=== PATIENT | female | born 1980 | race Caucasian/White ===

== ENCOUNTER 2023-09-10 18:32 | Emergency (ER) | payer BC, SELFPAY ==
[2023-09-10 18:41] VITALS: BP 153/99; PULSE 89; RESP 12; TEMP 35.9; O2SAT 99; BMI 25.7
--- NOTE | 2023-09-10 19:05 | ED_ITS ---
HPI - General Adult General Date Seen: 09/10/23 Chief complaint: Headache/Migraine Stated complaint: headache, back and neck pain Time Seen by Provider: 09/10/23 19:05 History of Present Illness HPI narrative: 42-year-old female presenting to the ER today for symptoms of headache, neck pain, and back pain. Symptoms of actually been going on for 2 months but have been getting worse lately and came to the point today where she cannot tolerate it at home. She notes that in started with intermittent left retro-orbital headaches but also now she has been having increasing pain in tension in her left shoulder, just medial to her left scapula, radiating up the left side of her neck and mostly in the left side of her head. It has been present for a couple of months and been getting steadily worse. It has gotten to the point today where it is just not tolerable anymore. She has been trying to medicated with [id number] Tylenol and ibuprofen, lidocaine patches, and she has been going to her chiropractor but it just isn't getting better. She 1st thought it might just be attention problem because she started a new job and has been stressed. However with progressing symptoms now over couple of months she is concerned. 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 This is a very aware aggressive tumor. It was resected by a surgeon at the [facility]. She had surveillance for about 3 years after the resection and with no sign of recurrence. She says she has not been good about going back for her follow-up surveillance scans. With the pain in her left shoulder she is worried that there might be a recurrence of that tumor. No fevers but sometimes she has night sweats. No known sick exposures. No cough. She has photophobia but otherwise vision is normal. No focal numbness or weakness in her arms or legs. No ataxia or gait instability. No confusion. No trouble with speaking. No seizures. No known injury or fall. Related Data Home Medications Medication Instructions Recorded Confirmed cyclobenzaprine 5 mg tablet 5 - 10 mg PO 3XD PRN 09/10/23 09/10/23 fluoxetine 40 mg capsule 40 mg PO DAILY 09/10/23 09/10/23 norethindrone acetate 1 mg-ethinyl 1 tab PO DAILY 09/10/23 09/10/23 estradiol 20 mcg tablet (Junel) Allergies Allergy/AdvReac Type Severity Reaction Status Date / Time rifampin Allergy Unknown Verified 09/10/23 20:01 [facility] Social History Smoking Status: Never smoker How often do you have a drink containing alcohol: monthly or less AUDIT-C Alcohol total score: 1 Non-prescribed substance use: denies use Exam Narrative: Exam Narrative: Constitutional: Appears well-developed and well-nourished. Alert. Uncomfortable and has the lights out because she has photophobia. She is worried and mildly tearful but conversant and polite HENT: Head: Atraumatic. No depressed skull fracture, Raccoon Eyes, Marr's sign, or hemotympanum. Face normal. TMs normal Nose: Nose normal. Mouth/Throat: Oral mucosa is clear and moist. no trismus. Pharynx normal. Tonsils symmetric. No tonsillar enlargement, erythema, or exudate. Eyes: Conjunctivae normal. EOM normal. Pupils equal, round, and reactive to light. No scleral icterus. Neck: Normal range of motion. Neck supple. No tracheal deviation present. No posterior midline tenderness or step-off. She is mildly tender over the left cervical paraspinous muscles but that seems to stem from more significant tenderness over the left trapezius muscle. Cardiovascular: Normal rate, regular rhythm. No gallop. No friction rub. No murmur heard. Symmetric radial artery pulses Pulmonary/Chest: Effort normal. No stridor. No respiratory distress. No wheezes. No rales. No rhonchi . No tenderness. Abdominal: Soft. Bowel sounds normal. No distension. No mass. No tenderness. No rebound. No guarding. Musculoskeletal: Inspection of her back reveals that she has a vertical incision over her left medial scapula roughly 10 cm long. The incision looks to be well healed in a few years old. She is having a lot of tenderness and a firm area in the musculature a few cm medial to that incision. She is very tender over that left trapezius muscle with tenderness extending up the left cervical paraspinous muscles and also left headache. RUE: Normal range of motion. No tenderness. No deformity LUE: Normal range of motion. No tenderness. No deformity RLE: Normal range of motion. No edema. No tenderness. No deformity LLE: Normal range of motion. No edema. No tenderness. No deformity Lymph: No cervical adenopathy. Neurological: Mental status normal. Attention normal. Alert and oriented x3. GCS 15. Memory normal. Speech fluent. Cognition normal. Cranial Nerves intact II-XII except I did not formally test gag or visual acuity. EOMI. Palate elevates symmetrically and tongue protrudes in the midline. Strength: 5/5 trapezius on the right and left 5/5 deltoid on the right and left 5/5 biceps on the right and left 5/5 triceps on the right and left 5/5 bartenders on the right and left 5/5 thumb opposition on the right and le ft 5/5 finger abduction on the right and le ft 5/5 hip flexors (L3) on the right and le ft 5/5 quadriceps (L4) on the right and lef t 5/5 tibialis anterior on the right and l eft 5/5 EHL (L5) on the right and left 5/5 gastrocnemius (S1) on the right and left 5/5 hamstring on the right and left Sensation intact to light touch in both upper extremities (C4-T1) Sensation intact to light touch in Both lower extremities (L4-S1). Finger to nose and coordination normal. Skin: Skin is warm and dry. No rash noted. No pallor. Normal capillary refill. Psychiatric: Normal mood. Tearful due to pain and worry. Polite Const: Vital Signs, click to edit/add: Vital Signs - 24 hr 09/10/23 18:41 Temperature 96.7 F L Pulse Rate [Pulse Oximeter] 89 Respiratory Rate 12 Blood Pressure [Ri ght Upper Arm] 153/99 H Pulse Oximetry 99 Oxygen Delivery Me thod Room Air Course Vital Signs Vital signs: Initial Vital Signs Temperature 96.7 F L 09/10/23 18:41 Temperature Source Temporal Artery Scan 09/10/23 18:41 Pulse Rate 89 09/10/23 18:41 Pulse Rhythm Regular 09/10/23 18:41 Respiratory Rate 12 09/10/23 18:41 Blood Pressure 153/99 H 09/10/23 18:41 Blood Pressure Mean 117 H 09/10/23 18:41 Blood Pressure Position Sitting 09/10/23 18:41 Pulse Oximetry 99 09/10/23 18:41 Oxygen Delivery Method Room Air 09/10/23 18:41 Vital Signs Temperature 96.7 F L 09/10/23 18:41 Pulse Rate 89 09/10/23 18:41 Respiratory Rate 12 09/10/23 18:41 Blood Pressure 153/99 H 09/10/23 18:41 Pulse Oximetry 99 09/10/23 18:41 Oxygen Delivery Method Room Air 09/10/23 18:41 Temperature 96.7 F L 09/10/23 18:41 Pulse Rate 89 09/10/23 18:41 Respiratory Rate 12 09/10/23 18:41 Blood Pressure 153/99 H 09/10/23 18:41 Pulse Oximetry 99 09/10/23 18:41 Oxygen Delivery Method Room Air 09/10/23 18:41 Medications Administered Medications: Discontinued Medications Generic Name Dose Route Start Last Admin Trade Name Deoq PRN Reason Stop Dose Admin Diphenhydramine HCl 12.5 mg 09/10/23 19:27 09/10/23 19:55 Diphenhydramine 50 Mg/Ml Inj IVP 09/10/23 19:28 12.5 mg ONCE ONE Administration Sodium Chloride 1,000 mls @ 1,000 mls/hr 09/10/23 19:30 09/10/23 21:16 0.9 % Sodium Chloride 1000 Ml IV 09/10/23 20:29 Infused .Q1H MARCELLUS Infusion Ketorolac Tromethamine 15 mg 09/10/23 19:27 09/10/23 19:55 Ketorolac 15 Mg/Ml Inj IVP 09/10/23 19:28 15 mg ONCE ONE Administration Metoclopramide HCl 10 mg 09/10/23 19:27 09/10/23 19:55 Metoclopramide Hcl 5 Mg/Ml Inj IVP 09/10/23 19:28 10 mg ONCE ONE Administration Medical Decision Making [facility] Narrative Medical decision making narrative: Pleasant 42-year-old female with a history of giant cell tumor affecting her left scapula [facility] presenting to the ER today for evaluation of 2 months of progressively worsening headaches (predominantly left-sided and left retro-orbital) neck pain (predominantly on the left), and left shoulder pain in the area of her left scapula and left trapezius adjacent to where she had her tumor resected a few years ago. Symptoms of being and steadily worse and got to the point today when she was driving home that she simply could not tolerate the pain anymore, prompting her visit to the ER Differential for her symptoms is broad. She was concerned about possible recurrence of her tumor. We did obtained CT scans of her head and chest which are negative for any sign of tumor or metastasis. CT angio of her head neck shows normal vasculature. No evidence for cervical artery dissection, stenosis, or any intracranial aneurysm. No evidence for vasculitis or AVM. Head CT is negative for bleed, mass, edema, or other structural abnormality. With 2 months of symptoms, bacterial meningitis would be exceedingly unlikely. Additionally she does not have meningismus or neck stiffness, fever, leukocytosis. At this point I do not think she needs lumbar puncture. She has has photophobia but no other visual symptoms to suggest pseudotumor. At this point I think that risk/discomfort of lumbar puncture would outweigh unlikely possible benefit. No trauma to raise concern for C-spine fracture. No focal neurologic deficits to suggest stroke, spinal cord injury, cervical radiculopathy. Symmetric pulses on exam and normal mediastinum on her chest CT. Overall I have very low suspicion for thoracic aortic dissection. Due to the knee did time of the IV CT contrast to get angiograms of her head and neck, were not able to get a PE run or aortic angiogram of her chest. At this point I believe that the risk of a 2nd dye load causing contrast nephropathy would outweigh the benefit to look for aortic dissection. Clinical exam does not show any sign of bruising. No redness to suggest cellulitis or trauma. No shingles. She is feeling better after migraine cocktail here in the ER and feels comfortable discharging to home. Discussed with the patient that this point there is no sign of any tumor recurrence on her CT images but I still advised close outpatient follow-up with her primary care doctor or [facility] to make sure she gets proper surveillance (perhaps with MRI? ) To make sure there is no tumor or other problem. Patient agreeable. Questions answered. Instymeds prescription for [place]-10 tablets provided. Opiate precautions reviewed. Lab Data Labs: Lab Results 09/10/23 Range/Units 19:45 WBC 9.01 (4.50-11.00) K/uL RBC 4.64 (4.00-5.20) m/uL Hgb 14.4 (12.0-16.0) gm/dL Hct 42.6 (33.0-51.0) % MCV 92 (80-100) fL MCH 31 (26-34) pg MCHC 34 (32-36) gm/dL RDW Coeff of [place] 12.2 (11.5-15.5) % Plt Count 247 (140-440) K/uL Neut % (Auto) 30.3 L (42.0-72.0) % Lymph % (Auto) 61.3 H (20-44) % [place] % (Auto) 7.1 (0.0-11.0) % Eos % (Auto) 0.8 (0.0-7.0) % Baso % (Auto) 0.4 (0.0-3.0) % Neut # (Auto) 2.70 (1.7-7.0) K/uL Lymph # (Auto) 5.50 H (0.90-2.90) K/uL [place] # (Auto) 0.60 (0.00-0.90) K/UL Eos # (Auto) 0.07 (0.00-0.50) K/uL Baso # (Auto) 0.04 (0.00-0.30) K/uL Abs Immat Gran (auto) 0.01 (0.00-0.30) K/uL Imm/Tot Granulo (auto) 0.1 % Diff Slide Review Acceptable Review (Acceptable) INR 0.90 L (0.91-1.10) Sodium 139 (135-149) mmol/L Potassium 4.0 (3.6-5.1) mmol/L Chloride 105 (96-114) mmol/L Carbon Dioxide 26 (20-32) mmol/L Anion Gap 8 (7-15) mEq/L BUN 12 (5-24) mg/dL Creatinine 0.7 (0.5-1.5) mg/dL Estimated Creat Clear 88.56 Estimated GFR 109 ml/min Glucose 92 (60-115) mg/dL Calcium 9.8 (8.4-10.6) mg/dL Imaging Data CT angio head and neck: Attestation: I have reviewed the pertinent imaging results. Radiologist's impression: FINDINGS: CTA head: 1. Bilateral carotid siphons and [place]ct[place] of [place] are patent. 2. Major bilateral intracranial arterial circulations are patent with no high- grade stenosis or aneurysm. 3. Patent right dominant vertebrobasilar system. Left vertebral artery appears to terminate as the left PICA. CTA neck: 1. Patent bilateral carotid artery circulations from the origin to the skullbase. No focal stenosis. 2. Patent bilateral vertebral artery circulations from the origin to the vertebrobasilar junction. No high-grade stenosis or dissection. 3. The right vertebral artery is dominant. CT scan - chest: Attestation: I have reviewed the pertinent imaging results. Radiologist's impression: FINDINGS: Lower neck: The visualized thyroid is unremarkable. Cardiovascular: Heart size is normal. Thoracic aorta and pulmonary artery are normal in caliber. No significant atherosclerotic calcifications of the aortic arch. No significant coronary arterial calcifications. No large central pulmonary embolus. Mediastinum and lymph nodes: Unremarkable. No pathologic mediastinal or hilar lymphadenopathy by size criteria. Lungs: No focal consolidation. Dependent atelectasis. Scattered calcified granulomas, the largest measures 6 millimeters in the right upper lobe. No suspicious pulmonary masses identified. Minimal biapical pleural-parenchymal scarring. Trachea: Patent and midline. Mild diffuse peribronchial wall thickening. Pleura: No pleural effusions or pneumothorax Chest wall: Bilateral breast prostheses. Otherwise, unremarkable. No axillary lymphadenopathy. Bones: No acute osseous abnormalities. Upper abdomen: Unremarkable. Focal hepatic fatty infiltration along the falciform ligament. IMPRESSION: No acute intrathoracic pathology. The etiology of the patient`s chest pain is not elucidated on this examination. CT scan - head: Attestation: I have reviewed the pertinent imaging results. Radiologist's impression: IMPRESSION: 1. No acute intracranial abnormality. 2. Normal brain parenchymal morphology 3. No interval change Discharge Plan Discharge Clinical Impression: Acute neck pain, Headache, Left shoulder pain Patient Disposition: Home, Self-Care Condition: Stable Instructions: Acute Headache (DC), Neck Pain (ED) Additional Instructions: As we discussed, please follow-up with your regular doctor and your [facility] as soon as possible to recheck for your pain. You may need further testing such as an MRI to make sure there is no recurrent tumor. Fortunately, there is no sign of any recurrent tumor on your CT scans today in the ER. To treat your pain, try to get by with btpf-ghy-zivnaay medications such as acetaminophen or ibuprofen. Use prescription pain killer if needed for pain uncontrolled by those meds. Be careful with [place] because it can cause dizziness, drowsiness, constipation, and can be addictive. Do not drive for 6 hours after you take [place]. Do not mix [place] with alcohol. If you have worsening symptoms or any concerns, you should come back to the ER right away. Prescriptions: No Action fluoxetine 40 mg capsule 40 mg PO DAILY norethindrone ac-eth estradiol [07/18 (21)] 1-20 mg-mcg tablet 1 tab PO DAILY cyclobenzaprine 5 mg tablet 5 - 10 mg PO 3XD PRN Follow Up/Referrals: Provider,Not a Local [Primary Care Provider] - Stand Alone Forms: [facility] Info Instructions
--- NOTE | 2023-09-10 19:27 | CT_ITS ---
Patient: SHYANNE PATIÑO Facility:?[facility] Patient ID:?[id number] Site Patient ID:?[id number]. Site :?1980 Study:?CT-Neck Angio W/ 95CC ISOVUE 370-09/10/2023 8:34:09 PM Ordering Physician:ACE Final Report: CLINICAL HISTORY: Left-sided headache; neck pain. TECHNIQUE: Standard helical CT image acquisition through the head following the administration of intravenous contrast was performed. 3D and MIP reconstructions were performed at a separate workstation and permanently archived. COMPARISON: None available. FINDINGS: No intracranial proximal large vessel occlusion or flow-limiting luminal stenosis. No evidence of cerebral aneurysm. No findings to suggest an arterial-venous shunting lesion. The major dural venous sinuses and deep venous system are patent. IMPRESSION: No intracranial proximal large vessel occlusion, flow-limiting luminal stenosis, or cerebral aneurysm. Please note that all CT scans at this facility use dose modulation, iterative reconstruction, and/or weight-based dosing when appropriate to reduce radiation dose to as low as reasonably achievable. Dictated by John Krishnan MD @ 09/11/2023 8:49:45 AM Signed by:?John Krishnan MD @09/11/2023 8:49:45 AM (Electronic Signature)
--- NOTE | 2023-09-10 19:27 | CT_ITS ---
Patient: SHYANNE PATIÑO Facility:?[facility] Patient ID:?[id number] Site Patient ID:?[id number]. Site :?1980 Study:?CT-Chest W/ 95CC ISOVUE 370-09/10/2023 8:36:32 PM Ordering Physician:ACE Final Report: INDICATION: Chest pain. TECHNIQUE: Multiplanar CT examination of the chest was performed after the administration of 95 mL of Isovue 370 intravenous contrast. COMPARISON: None. FINDINGS: Lower neck: The visualized thyroid is unremarkable. Cardiovascular: Heart size is normal. Thoracic aorta and pulmonary artery are normal in caliber. No significant atherosclerotic calcifications of the aortic arch. No significant coronary arterial calcifications. No large central pulmonary embolus. Mediastinum and lymph nodes: Unremarkable. No pathologic mediastinal or hilar lymphadenopathy by size criteria. Lungs: No focal consolidation. Dependent atelectasis. Scattered calcified granulomas, the largest measures 6 millimeters in the right upper lobe. No suspicious pulmonary masses identified. Minimal biapical pleural-parenchymal scarring. Trachea: Patent and midline. Mild diffuse peribronchial wall thickening. Pleura: No pleural effusions or pneumothorax Chest wall: Bilateral breast prostheses. Otherwise, unremarkable. No axillary lymphadenopathy. Bones: No acute osseous abnormalities. Upper abdomen: Unremarkable. Focal hepatic fatty infiltration along the falciform ligament. IMPRESSION: No acute intrathoracic pathology. The etiology of the patient`s chest pain is not elucidated on this examination. Please note that all CT scans at this facility use dose modulation, iterative reconstruction, and/or weight-based dosing when appropriate to reduce radiation dose to as low as reasonably achievable. Dictated by Marc Quintanilla MD @ 09/10/2023 8:57:30 PM Signed by:?Marc Quintanilla MD @09/10/2023 8:57:30 PM (Electronic Signature)
--- NOTE | 2023-09-10 19:27 | CT_ITS ---
Patient: SHYANNE PATIÑO Facility:?[facility] Patient ID:?[id number] Site Patient ID:?[id number]. Site :?1980 Study:?CT-Head Angio W/ 95CC ISOVUE 370-09/10/2023 8:32:48 PM Ordering Physician:ACE Final Report: CLINICAL HISTORY: Left-sided headache and neck pain. TECHNIQUE: Standard helical CT image acquisition through the neck was performed after intravenous contrast bolus enhancement. 3D and MIP reconstructions were performed at a separate workstation and permanently archived. COMPARISON: None available. FINDINGS: The origins of the great vessels from the aortic arch are patent. The common carotid arteries are patent. No significant luminal stenoses of the proximal ICAs by NASCET criteria. The more distal cervical segments of the ICAs are patent. The origins and cervical segments of the vertebral arteries are patent. IMPRESSION: Patent cervical arterial vasculature without hemodynamically significant luminal stenosis. Please note that all CT scans at this facility use dose modulation, iterative reconstruction, and/or weight-based dosing when appropriate to reduce radiation dose to as low as reasonably achievable. Dictated by John Krishnan MD @ 09/11/2023 8:48:34 AM Signed by:?John Krishnan MD @09/11/2023 8:48:34 AM (Electronic Signature)
--- NOTE | 2023-09-10 19:29 | CT_ITS ---
Patient: SHYANNE PATIÑO Facility:?[facility] Patient ID:?[id number] Site Patient ID:?[id number]. Site :?1980 Study:?CT-Head W/O-09/10/2023 8:30:29 PM Ordering Physician:ACE Final Report: Indication : Left-sided headaches. Comparison : 05/24/2018. TECHNIQUE: Noncontrast CT head. FINDINGS: Normal brain parenchymal morphology. No acute intracranial hemorrhage, acute infarct, focal edema, mass effect, or fracture. No midline shift. No abnormal ventricular dilatation. Normal calvarium and skull base. Visualized paranasal sinuses and mastoid air cells are clear. Normal orbits bilaterally. IMPRESSION: 1. No acute intracranial abnormality. 2. Normal brain parenchymal morphology 3. No interval change Please note that all CT scans at this facility use dose modulation, iterative reconstruction, and/or weight-based dosing when appropriate to reduce radiation dose to as low as reasonably achievable. Dictated by Justino Shanks MD @ 09/10/2023 8:35:44 PM Signed by:?Justino Shanks MD @09/10/2023 8:35:44 PM (Electronic Signature)
[2023-09-10 19:52] LABS: Basophils Absolute Auto 0.04 K/uL (0.00-0.30); Basophils Percent Auto 0.4 % (0.0-3.0); Eosinophils Absolute Auto 0.07 K/uL (0.00-0.50); Eosinophils Percent Auto 0.8 % (0.0-7.0); Hematocrit 42.6 % (33.0-51.0); Hemoglobin* 14.4 gm/dL (12.0-16.0); Immature Granulocytes Abs Auto 0.01 K/uL (0.00-0.30); Immature Granulocytes Pct Auto 0.1 %; Lymphocytes Percent Auto 61.3 % (20-44); Mean Corpuscular HGB Conc 34 gm/dL (32-36); Mean Corpuscular Hemoglobin 31 pg (26-34); Mean Corpuscular Volume 92 fL (80-100); Monocytes Percent Auto 7.1 % (0.0-11.0); Neutrophils Percent Auto 30.3 % (42.0-72.0); Platelet Count* 247 K/uL (140-440); RDW Coefficient of Variation % 12.2 % (11.5-15.5); Red Blood Count 4.64 m/uL (4.00-5.20); White Blood Count* 9.01 K/uL (4.50-11.00)
[2023-09-10] MEDS: 0.9 % SODIUM CHLORIDE 1000 ml 1,000 ML IV (19:54)
[2023-09-10] MEDS: METOCLOPRAMIDE HCL 5 MG/ML INJ 10 MG IVP (19:55)
[2023-09-10] MEDS: KETOROLAC 15 MG/ML inj IVP (19:55)
[2023-09-10] MEDS: diphenhydrAMINE 50 MG/ML inj 12.5 MG IVP (19:55)
[2023-09-10 20:07] LABS: Chloride* 105 mmol/L (96-114); Sodium* 139 mmol/L (135-149)
[2023-09-10 20:09] LABS: Creatinine* 0.7 mg/dL (0.5-1.5); Est. Creatinine Clearance* 88.56; Estimated Glomerular Filt Rate 109 ml/min; Prothrombin Time 12.7 Seconds
[2023-09-10 20:10] LABS: Anion Gap 8 mEq/L (7-15); Blood Urea Nitrogen* 12 mg/dL (5-24); Carbon Dioxide* 26 mmol/L (20-32); Glucose* 92 mg/dL (60-115)
[2023-09-10 20:11] LABS: Calcium* 9.8 mg/dL (8.4-10.6); Slide Review Reflex Yes
[2023-09-10 20:12] LABS: Slide Review Acceptable Review (Acceptable)
[2023-09-10 21:54] LABS: HCG Qualitative Serum* Negative (Negative)
== END 2023-09-10 22:01 | disposition home or self-care (01) ==
PROVIDERS: Emergency Provider Emergency Medicine
DX: M54.2 Cervicalgia (principal); R51.9 Headache, unspecified; M25.512 Pain in left shoulder
CPT/HCPCS: 36415; 70450; 70496; 70498; 71260; 80048; 84703; 85025; 85610; 96361; 96374; 96375; 99284; 99285; J1200; J1885; J2765; J7030; Q9967

== ENCOUNTER 2025-03-09 15:01 | Emergency (ER) | payer BC, SELFPAY ==
[2025-03-09 15:08] VITALS: BP 162/137; PULSE 155; RESP 32; TEMP 36.8; O2SAT 97
--- NOTE | 2025-03-09 15:28 | ED.GENADULT ---
HPI - General Adult General Date Seen: 03/09/25 Chief complaint: Anxiety Stated complaint: anxiety attack Time Seen by Provider: 03/09/25 15:18 History of Present Illness HPI narrative: Patient is a 44-year-old here with parents for evaluation of a panic attack. Her parents provide a lot of the history, she is crying and visibly upset. According to her parents, she had a meeting at work today and was told that she was being disrespectful and that she had believing that HR would contact her, the and send UA showed an seems to have been that she was going to lose her job. 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 A little clarification from the patient was that it sounds like there have been some complaints recently and she knew this meeting today was to discuss her future in the position. She says that before the meeting she was feeling kind of anxious because she was worried about the outcome and then at the end of it she feels like she just lost control. She says she has not had panic attacks like this previously, she does have a long history of anxiety and has been on fluoxetine 40 mg daily for many years. She says she generally this controls her anxiety pretty well though she does use THC gummies regularly to help quiet her mind particularly at night. She denies smoking or vaping, denies any other substances, denies medication changes. She does not use anything at home for more immediate anxiety treatment. Related Data Home Medications ?Medication ?Instructions ?Recorded ?Confirmed fluoxetine 40 mg capsule 40 mg PO DAILY 03/09/25 03/09/25 Allergies Allergy/AdvReac Type Severity Reaction Status Date / Time No Known Drug Allergies Allergy Verified 03/09/25 15:08 Review of Systems Status of ROS: Reports: 6 or more systems reviewed and unremarkable except as noted in History and below Exam Narrative: Exam Narrative: Vital signs reviewed, significantly hypertensive, tachycardic, tachypneic which I think is likely related to her anxious state, will reassess. In general, alert, tearful and shaking woman. Her dad is hugging her throughout our conversation. Neuro: She is answering questions appropriately, speech is fluent, gait stable. Affect: Anxious and tearful, well groomed, minimal eye contact. Const: Vital Signs, click to edit/add: Vital Signs - 24 hr 03/09/25 15:08 03/09/25 16:06 Temperature 98.3 F Pulse Rate [Right Pulse Oximeter] 155 H 116 H Respiratory Rate 32 H 18 Blood Pressure [Ri ght Upper Arm] 162/137 H 156/88 H Pulse Oximetry 97 96 Oxygen Delivery Me thod Room Air Course Course ED Course: To start with, will give Valium 5 mg IM and just trying get the more significant symptoms calmed down a bit, then reassess. She feels significantly calmer after Valium. Was able to talk with Jose A, feel safe going home but would like something for short-term anxiety management. I spoke with her again, she is somewhat tearful, she says she feels sad about the likely loss of her job and embarrassed about her inability to keep herself under control today. We talked about finding a counselor therapist, I think she might benefit from a primary care doctor outside of [facility] to help with med management as fluoxetine may not be the best drug for anxiety control for her. For now I would have her continue taking that, I prescribed Ativan for short-term use. Return to the ER at any time if she is having more difficulty coping. Vital Signs Vital signs: Initial Vital Signs Respiratory Effort Non-Labored, Tachypnea 03/09/25 15:01 Respiratory Depth Normal 03/09/25 15:01 Respiratory Pattern Normal 03/09/25 15:01 Vital Signs Temperature 98.3 F 03/09/25 15:08 Pulse Rate 155 H 03/09/25 15:08 Respiratory Rate 32 H 03/09/25 15:08 Blood Pressure 162/137 H 03/09/25 15:08 Pulse Oximetry 97 03/09/25 15:08 Temperature 98.3 F 03/09/25 15:08 Pulse Rate 116 H 03/09/25 16:06 Respiratory Rate 18 03/09/25 16:06 Blood Pressure 156/88 H 03/09/25 16:06 Pulse Oximetry 96 03/09/25 16:06 Oxygen Delivery Method Room Air 03/09/25 16:06 Medications Administered Medications: Discontinued Medications Generic Name Dose Route Start Last Admin Trade Name Freq PRN Reason Stop Dose Admin Diazepam 5 mg 03/09/25 15:28 03/09/25 15:38 Diazepam 5 Mg/Ml Inj IM 03/09/25 15:29 5 mg ONCE ONE Administration Discharge Plan Discharge Clinical Impression: Anxiety disorder with panic attacks Patient Disposition: Home, Self-Care Condition: Improved Instructions: Panic Disorder (ED), Anxiety (ED) Additional Instructions: Continue your fluoxetine as prescribed. I have given you a prescription for Ativan, which is used for short-term control of increased anxiety. This is not a good long-term solution. I do think you would benefit from likely medication management through a primary care doctor outside of [facility], as you may need an adjustment in terms of management of your chronic anxiety. I would also suggest to consider finding a counselor or therapist. Return to the ER at any time if you have severe uncontrolled symptoms. Prescriptions: No Action fluoxetine 40 mg capsule 40 mg PO DAILY Follow Up/Referrals: Provider,Not a Local [Primary Care Provider, Family Practice] Stand Alone Forms: [facility] Medical Info Instructions
[2025-03-09] MEDS: diazePAM 5 MG/ML inj IM (15:38)
[2025-03-09 16:06] VITALS: BP 156/88; PULSE 116; RESP 18; O2SAT 96
--- OUTSIDE RECORDS SUMMARY | 2025-03-09 16:43 | XMS_ITS | Clinical Summary ---
Author Organization [place] Address [address] [place] [address] Care Team Providers Care Racing Car Driver Name Role Phone Soy Meyers MD Unavailable [phone] Galen Claire MD Primary Care Provider + Allergies Active Allergy Reactions Criticality Noted Date Comments Rifampin Other (See Comments) Medium 06/18/2015 GI bleeding Medications FLUOXETINE HCL PO Take 40 mg by mouth daily Active Norethindrone Acet-Ethinyl Est (LOESTRIN 1.5, 21, PO) 7 Active multivitamin w/minerals (MULTI-VITAMIN) tablet Take 1 tablet by mouth daily Active vitamin D3 (CHOLECALCIFEROL ) 2000 units tablet Take 2,000 Units by mouth daily Active ibuprofen (ADVIL/MOTRIN) 200 MG tablet Take 600 mg by mouth every 6 hours as needed for mild pain Active albuterol (PROAIR HFA/PROVENTIL HFA/VENTOLIN HFA) 108 (90 Base) MCG/ACT inhaler Inhale 1-2 puffs into the lungs every 4 hours as needed for shortness of breath / dyspnea or wheezing Active cephALEXin (KEFLEX) 500 MG capsule Take 500 mg by mouth 3 times daily Active budesonide (PULMICORT FLEXHALER) 180 MCG/ACT inhaler Inhale into the lungs 2 times daily Active Semaglutide, 1 MG/DOSE, (OZEMPIC) 4 MG/3ML penIndications:P re-diabetes,Hype rtension, unspecified type,Hyperlipide katherine LDL goal <100 Inject 0.5 mg every week for 28 days then inject 1 mg every week thereafter 6 mL 3 5 Active Active Problems Problem Noted Date Diagnosed Date Sacral pain 02/27/2017 Giant cell tumor of bone 07/23/2015 Bone lesion 06/18/2015 S/P breast augmentation 06/18/2015 Status post laser ablation of incompetent vein 1 08/19/2014 Encounter for supervision of other normal pregna ncy 03/18/2012 Suspected condition not found 10/20/2011 Current with history of labor 09/09/2011 History of cervical LEEP bio psy affecting care of mother, antepartum 09/09/2011 Resolved Problems Problem Noted Date Diagnosed Date Resolved Date Generalized muscle weakness 05/12/2018 08/18/2018 Mixed incontinence urge and stress (male)(female) 05/12/2018 08/18/2018 Family History Medical History Relation Comments Anxiety Disorder Father Coronary Artery Disease Father Gallbladder Disease Mother Hyperlipidemia Mother Hypertension Mother Obesity Mother Coronary Artery Disease Paternal Grandfather Relation Status Comments Father Mother Paternal Grandfather Social History Tobacco Use Types Packs/Day Years Used Date Smoking Tobacco: Never Smokeless Tobacco: Never Alcohol Use Standard Drinks/Week Comments Yes 0 (1 standard drink = 0.6 oz pur e alcohol) 1 per week Adolescent Education Answer Date Record ed Getting School Help Needed Not on file 03/22 Comments No Sex and Gender Information Value Date Recorded Sex Assigned at Not on file Legal Sex Female 3: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 VISUAL MERCHANDISER Gender Identity Not on file Sexual Orientation Not on file Last Filed Vital Signs Vital Sign Reading Time Taken Comments Blood Pressure 159/92 02/15/2023 7:28 PM CDT Pulse 75 02/15/2023 8:39 PM CDT Temperature 36.5 C (97.7 F) 02/15/2023 7:28 PM CDT Respiratory Rate 18 02/15/2023 8:39 PM CDT Oxygen Saturation 100% 02/15/2023 8:39 PM CDT Inhaled Oxygen Concentration - - Weight 74.8 kg (165 lb) 06/09/2018 9:37 AM RETAIL VISUAL MERCHANDISER Height 162.6 cm (5' 4) 06/09/2018 9:37 AM RETAIL VISUAL MERCHANDISER Body Mass Index 28.32 06/09/2018 9:37 AM RETAIL VISUAL MERCHANDISER Plan of Treatment Health Maintenance Due Date Last Done Comments ADVANCE CARE PLANNING 1978 ANNUAL REVIEW OF HM ORDERS [address] COLONOGRAPHY 1978 DIABETES SCREENING 1978 FIT 1978 FLEX SIG 1978 sDNA (Cologuard) 1978 COLONOSCOPY 1988 COLORECTAL CANCER SCREENING 1988 HIV SCREENING 1993 HEPATITIS C SCREENING 1996 HEPATITIS B VACCINE (1 of 3 - 19+ 3-dose series) 1997 LIPID 2018 YEARLY PREVENTIVE VISIT 10/19/2021 10/19/2020 MAMMO SCREENING 10/19/2022 10/19/2020, 10/19/2020 PAP 10/20/2023 10/19/2020, 10/19/2020 PHQ-2 (once per calendar year) 2024 COVID-19 VACCINE ( season) 2025 04/10/2021, 07/14/2020, 06/23/2020 INFLUENZA VACCINE (#1) 2025 , 04/22/2021, 03/31/2020, Additional history exists DTAP/TDAP/TD VACCINE (2 - Td or Tdap) 04/02/2025 04/02/2015 ZOSTER VACCINE (1 of 2) 2028 HPV VACCINE (No Doses Required) Completed MENINGITIS VACCINE Aged Out No longer eligible based on patient's age to complete this topic PNEUMOCOCCAL VACCINE: PEDIATRICS (0 to 5 YEARS) AND AT-RISK PATIENTS (6 to 49 YEARS) Aged Out No longer eligible based on patient's age to complete this topic Medical Devices Implanted Type Area Bulldozer/Loader/Compactor/Scraper Device Identifier Shelf Expiration Date Model / Serial / Lot Mesh Composite W/Collagen 4cm Open Ventral Parietex [id number] Implanted:Qty: 1 on 06/09/2018 by Shu Bocye MD at [facility] Mesh N/A: Umbilical COVIDIEN 10/26/2022 [id number] / / [id number] Insurance [place] Care Teams Racing Car Driver Relationship Specialty Start Date End Date Galen Claire MD [address] [place] [address] [id number] PCP - General 06/12/15 Soy Meyers MD [address] [place] [id number] Orthopedics 06/12/15
--- OUTSIDE RECORDS SUMMARY | 2025-03-09 16:43 | XMS_ITS | Encounter Summary ---
Author Organization [place] Address [address] [place] [address] Care Team Providers Care Software Client Architect Name Role Phone Soy Meyers MD Unavailable [phone] Galen Claire MD Primary Care Provider + Encounter Details Date Type Department Care Team (Late st Contact Info) Description 12/24/2015 [facility] Medical Advice [facility] [address] [facility] [address] [place] [address] Soy Meyers MD [address] [place] [address] Social History Tobacco Use Types Packs/Day Years Used Date Smoking Tobacco: Never Alcohol Use Standard Drinks/Week Comments Yes 0 (1 standard drink = 0.6 oz pur e alcohol) 1 per week Comments Unknown Sex and Gender Information Value Date Recorded Sex Assigned at Not on file Legal Sex Female 3:09 AM CUSTOMER LEADER Gender Identity Not on file Sexual Orientation Not on file documented as of this encounter Plan of Treatment Not on file documented as of this encounter Visit Diagnoses Not on filedocumented in this encounter Additional Health Concerns Infection Onset Date Last Indicated Resolved Time Rule Out COVID-19 02/03/2020 02/03/2020 02/04/2020 6:55 PM CDT COVID-19 02/03/2020 02/03/2020 02/24/2020 11:3 9 PM CDT documented as of this encounter Care Teams Software Client Architect Relationship Specialty Start Date End Date Galen Claire MD [address] [place] [id number] PCP - General 06/12/15 Soy Meyers MD [address] [place] [address] Orthopedics 06/12/15 documented as of this encounter
--- OUTSIDE RECORDS SUMMARY | 2025-03-09 16:43 | XMS_ITS | Clinical Summary ---
Author Organization [email or web address] Address [address] [place] [address] Care Team Providers Care Facialist Name Role Phone Bereket Dubon MD Primary Care Provider Unavaila ble Allergies Active Allergy Reactions Criticality Noted Date Comments Rifampin Bleeding,Vomiting 10/09/2005 rectal bleeding Medications CETIRIZINE HCL (ZYRTEC ORAL) Take by mouth once daily. Active oxyCODONE (ROXICODONE) 5 mg immediate release tablet Take 1-2 tablets by mouth every 4 hours if needed for Pain. 30 tablet 11/15/2013 8:08 AM CDT 4 Active FLUoxetine (PROZAC) 20 mg capsule Take 20 mg by mouth at bedtime. For 90 days Active NORETHINDRONE A-E ESTRADIOL (JUNEL .11/25, 21, ORAL) Take by mouth. As instructed Active multivitamin (MVI) tablet Take 1 tablet by mouth once daily. Active Active Problems Problem Noted Date Diagnosed Date Supervision of other normal 03/18/2012 Suspected condition not found 10/20/2011 Current with history of labor 09/09/2011 History of cervical LEEP bio psy affecting care of mother, antepartum 09/09/2011 Immunizations Immunization Administration Dates Next Due Influenza, IIV3 (Age >=3 years) 03/20/2012,04/16 Tdap 04/02/2015 Family History Medical History Relation Name Comments Cancer-breast Maternal Aunt dx. age 52 Relation Name Status Comments Maternal Aunt dx. age 52 Alive Social History Tobacco Use Types Packs/Day Years Used Date Smoking Tobacco: Never Alcohol Use Standard Drinks/Week Comments Not Asked 0 (1 standard drink = 0.6 oz pur e alcohol) Comments No Sex and Gender Information Value Date Recorded Sex Assigned at Not on file Legal Sex Female 5:24 AM FOOD AND BEVERAGE SERVICE MANAGER Gender Identity Not on file Sexual Orientation Not on file Obstetrics History Para Term AB IAB SAB Ectopic Multiple Livin g Live Births 3 3 3 3 3 Date Outcome GA Total Labor Labor/2nd/3rd Weight Sex Type Anes PTL Karena A1 A5 Name Clin Term F Vag Living 006 Term 40w 2d F Vag Living 012 Term 40w 4d 3.46 kg (7 lb 10 oz) M Vag Living 9 9 [facility] AL[facility],B B Delivery Location:[facility] Last Filed Vital Signs Vital Sign Reading Time Taken Comments Blood Pressure 130/88 04/02/2015 9:30 AM CDT Pulse 95 04/02/2015 9:30 AM CDT Temperature 36.7 C (98 F) 04/02/2015 9:30 AM CDT Respiratory Rate 16 04/02/2015 9:30 AM CDT Oxygen Saturation 98% 04/02/2015 9:30 AM CDT Inhaled Oxygen Concentration - - Weight 70.3 kg (155 lb) 04/02/2015 9:30 AM CDT Height 162.6 cm (5' 4) 04/02/2015 9:30 AM CDT Body Mass Index 26.61 04/02/2015 9:30 AM CDT Plan of Treatment Health Maintenance Due Date Last Done Comments Depression screening for age 12+ 1990 HIV for age 15-65 1993 BMI (ht and wt on same day) for age 18+ 1996 Hepatitis C screening for ag e 18-79 1996 Hepatitis B series for 19+ ( 1 of 3 - 19+ 3-dose series) 1997 Pap test for age 21-65 11/08/1999 Colonoscopy through age 75 11/08/2023 Lipids for age 45-75 11/08/2023 Mammogram for age 45-75 11/08/2023 09/29/2013 COVID-19 vaccine series (2024- season) 2025 04/10/2021 Influenza Vaccine (#1) 2025 2, 04/16/2007 Tetanus booster 04/02/2025 04/02/2015 RSV vaccine for adults or (1 - 1-dose 75+ series) 2053 Pneumococcal series for age 6-49 Aged Out No longer eligible b ased on patient's age to complete this topic Medical Devices Implanted Type Area Stock Preparation Supervisor Device Identifier Shelf Expiration Date Model / Serial / Lot [id number] 5breast 375cc Memorygel Rnd High Smooth Silcn [[id number]] Implanted:Qty: 1 on 11/15/2013 at [facility] Right: Breast J And J Diurnal 09/26/2018 [id number] # / [id number] 1breast 400cc Memorygel Rnd High Smooth Silcn [[id number]] Implanted:Qty: 1 on 11/15/2013 at [facility] Left: Breast J And J Diurnal 08/26/2018 [id number] # / [id number] / [id number] Procedures Procedure Name Priority Date/Time Associated Diagnosis Comments XR MAMMO BILAT SCREEN FFDM (IA) Routine 09/29/2013 10:45 AM CDT Other screening mammogram from Last 3 Months or Most Recently Relevant to Health Maintenance Results * XR MAMMO BILAT SCREEN FFDM (09/29/2013 10:45 AM CDT) Anatomical Region Laterality Modality BREASTS, Breast Left, Breast Right Bilateral Mammography Impressions 09/29/2013 3:41 PM CDT There is no radiographic evidence for malignancy. Recommend annual mammograms. A lay language report of this examination will be provided to the patient. MAMMOGRAM ASSESSMENT: ACR 1 Negative Narrative 09/29/2013 3:41 PM CDT XR MAMMO BILAT SCREEN FFDM [G0202.0] CLINICAL HISTORY: This is an asymptomatic 32 y.o. patient. INDICATION FOR EXAM: Mammogram Screening. TECHNIQUE: CC & MLO views were obtained. This digital study was evaluated with the assistance of Computer-Aided Detection. COMPARISON FILM: This is a baseline study. FINDINGS: Mammographically, the breast tissue has scattered fibroglandular densities (approximately 25% - 50% glandular). There are no dominant masses, suspicious micro calcifications or areas of architectural distortion. Procedure Note Vivian Willard MD - 09/29/2013 XR MAMMO BILAT SCREEN FFDM [G0202.0] CLINICAL HISTORY: This is an asymptomatic 32 y.o. patient. INDICATION FOR EXAM: Mammogram Screening. TECHNIQUE: CC & MLO views were obtained. This digital study was evaluatedwith the assistance of Computer-Aided Detection. COMPARISON FILM: This is a baseline study. FINDINGS: Mammographically, the breast tissue has scatteredfibroglandular densities (approximately 25% - 50% glandular). There areno dominant masses, suspicious micro calcifications or areas ofarchitectural distortion. IMPRESSION: There is no radiographic evidence for malignancy. Recommendannual mammograms. A lay language report of this examination will be provided to the patient. MAMMOGRAM ASSESSMENT: ACR 1 Negative us Lucian Infante MD MAMMO Final Re sult from Last 3 Months or Most Recently Relevant to Health Maintenance Insurance COSMETIC PROCEDURE HB ONLY . ATTN: [place] [address] [facility] [place] [place] [address] [facility] Advance Directives * Full Code (Latest Code Status on File) Date Activated Date Inactivated Comments 11/15/2013 6:36 AM 11/15/2013 12:37 PM * Full Code Date Activated Date Inactivated Comments 03/19/2012 10:22 AM 03/20/2012 3:05 PM * Full Code Date Activated Date Inactivated Comments 03/19/2012 6:29 AM 03/19/2012 10:22 AM * Full Code Date Activated Date Inactivated Comments 03/12/2012 11:48 AM 03/12/2012 2:43 PM * Full Code Date Activated Date Inactivated Comments 11/10/2011 9:38 AM 11/10/2011 12:24 PM Care Teams Facialist Relationship Specialty Start Date End Date Bereket Dubon MD PCP - General 07/30/07
--- OUTSIDE RECORDS SUMMARY | 2025-03-09 16:43 | XMS_ITS | Encounter Summary ---
Author Organization [place] Address [address] [place] [address] Care Team Providers Care Aviation Metalsmith Name Role Phone Soy Meyers MD Unavailable [phone] Galen Claire MD Primary Care Provider + Encounter Details Date Type Department Care Team (Late st Contact Info) Description 06/19/2015 Team Conference [facility] 1st Floor, [address] [address] Kehinde Abdullahi DO [address] [place] [address] Social History Tobacco Use Types Packs/Day Years Used Date Smoking Tobacco: Never Comments Unknown Sex and Gender Information Value Date Recorded Sex Assigned at Not on file Legal Sex Female 3:09 AM DATA ANALYSIS INTERN Gender Identity Not on file Sexual Orientation Not on file documented as of this encounter Miscellaneous Notes * Telephone Encounter - Kehinde Abdullahi DO - 06/19/2015 4:57 PM DATA ANALYSIS INTERN Patient Position (indicated by x): Supine Supine with torso rolled up on a bump Floppy lateral on torso length duffy bag x Lateral decubitus, duffy bag, full length with torso rolled forward, arm draped free Lateral decubitus, Wixson hip positioner Safety paddle side supports x 2 clamped to side rail Lithotomy, both legs in yellow padded leg go Lithotomy, single leg in yellow padded leg go Prone on blanket rolls/round gel pad Prone on Geovanny (arched) frame on Demetris table Single thigh in orange arthroscopy clamp Beach chair semi recumbent Spider limb positioner Arm out on radiolucent arm table Split drape with top bar, will need another split going down Revision JETHRO drape with plastic side bags for leg Extremity drape x Shoulder pack drape Laparotomy drape Narayanan catheter General Equipment Requests (indicated by x): C-Arm with C-Armor drape C-Arm (video capable, Daric 9900 model) O-Arm with Stealth imaging Fracture Table Demetris XR Table Meyers Biopsy trephine set w/ K-wire & pituitary rongeurs x Small, large pituitary rongeur x Luigi's angled curettes, narrow shaft x small microsagittal saw Midas Bruno Medtronic michelle, electric motor Phenol 5% Hammond BMAC stem cell Vancomycin 1 gram powder Zometa 4 mg vials Depo Medrol steroid Blunt Pelvic Retractor (AO 398.55, Blunt Hohmann with slight bend) x Lambotte Osteotomes Specimens and cultures (indicated by x): x Tissue cultures, aerobic and anaerobic without gram stain x Frozen section x pathology specimens - fresh pathology specimens - formalin Plan: biopsy possible excision medial left scapular wing ANALYSIS INTERN ANALYSIS INTERN documented in this encounter Plan of Treatment Not on file documented as of this encounter Visit Diagnoses Not on filedocumented in this encounter Additional Health Concerns Infection Onset Date Last Indicated Resolved Time Rule Out COVID-19 02/03/2020 02/03/2020 02/04/2020 6:55 PM CDT COVID-19 02/03/2020 02/03/2020 02/24/2020 11:3 9 PM CDT documented as of this encounter Care Teams Aviation Metalsmith Relationship Specialty Start Date End Date Galen Claire MD [address] [facility] [address] [place] [address] PCP - General 06/12/15 Soy Meyers MD [address] [place], [place] [id number] [place] [address] Orthopedics 06/12/15 documented as of this encounter
--- OUTSIDE RECORDS SUMMARY | 2025-03-09 16:43 | XMS_ITS | Clinical Summary ---
Author Organization [facility] Address [address], [place] [address] Care Team Providers Care Animal Control Licensing Worker Name Role Phone Pcp, Pt Yoni ROBERT Primary Care Provider [phone] Source Comments You are receiving this document as you are listed as the primary care provider,follow-up provider, or the patient has been referred to you for consultation.This is in compliance with the Medicare and[employer] EHR Incentive Program,which states Providers who transition their patient to another setting of careor provider of care or refers their patient to another provider of care shouldprovide summary care record for each transition of care or referral. [facility] Allergies Active Allergy Reactions Criticality Noted Date Comments Rifampin 03/29/2018 Medications ibuprofen (MOTRIN) 600 MG tablet Take 600 mg by mouth every 6 hours as needed for Pain. Active FLUoxetine (PROZAC) 40 MG capsule Take 40 mg by mouth daily. Active loratadine (CLARITIN) 10 MG tablet Take 10 mg by mouth daily. Active JUNEL 07/18 1-20 MG-MCG tablet TAKE 1 TABLET BY ORAL ROUTE ONCE DAILY CONTINUOUSLY 4 9 Active ALBUterol sulfate HFA 108 (90 Base) MCG/ACT inhaler 1-2 Puffs. 2 Active acetaminophen (TYLENOL) 325 MG tablet Take 325-650 mg by mouth every 4 hours as needed for Pain. Active cyclobenzaprine (FLEXERIL) 10 MG tablet Take 1 Tablet (10 mg) by mouth three times a day as needed. 10 Tablet 2 Active Active Problems Problem Noted Date Diagnosed Date Anxiety and depression 11/12/2021 Mild intermittent asthma without complication Right shoulder pain 12/24/2018 History of benign neoplasm of bone 12/24/2018 History of cervical LEEP bio psy affecting care of mother, antepartum 09/09/2011 Immunizations Immunization Administration Dates Next Due Flu Vac (18-64 Yrs), Intradermal 03/31/2020 Flu Vac (3+ yrs) 03/28/2013, 2,04/27/2011,2009,04/16/2007 [id number] 04/25/2009 Influenza IIV4 (Quadrivalent ) 0.5mL (46224) 04/22/2021,03/23/2019,03/26/2016,2014,03/22/2014 Influenza ccIIV3 6 months+ (Flucelvax) 04/01/2024 Influenza, Unspecified Formulation 06/14/2012 Pfizer Monovalent 12+ Purple Top 04/10/2021,06/29,06/23/2020 Tdap 04/02/2015 Social History Tobacco Use Types Packs/Day Years Used Date Smoking Tobacco: Never Smokeless Tobacco: Never Alcohol Use Standard Drinks/Week Comments Yes 1 (1 standard drink = 0.6 oz pur e alcohol) occ. PHQ-2 Answer Date Recorded PHQ-2 Score 2 11/12/2021 Comments No Sex and Gender Information Value Date Recorded Sex Assigned at Not on file Legal Sex Female 8:20 AM CDT Gender Identity Not on file Sexual Orientation Not on file Last Filed Vital Signs Vital Sign Reading Time Taken Comments Blood Pressure 139/78 11/14/2021 1:00 PM CDT Pulse 71 11/14/2021 1:00 PM CDT Temperature 36.7 C (98.1 F) 11/14/2021 12:30 PM CDT Respiratory Rate 16 11/14/2021 1:00 PM CDT Oxygen Saturation 98% 11/14/2021 1:00 PM CDT Inhaled Oxygen Concentration - - Weight 79.4 kg (175 lb) 11/14/2021 6:47 AM CDT Height 162.6 cm (5' 4.02) 11/14/2021 6:47 AM CD T Body Mass Index 30.02 11/14/2021 6:47 AM CDT Plan of Treatment Health Maintenance Due Date Last Done Comments Cervical Cancer Screening Due 1978 Colon Cancer Screening Plan Due 1978 Hep C Screening (Preventive Services) 1978 Asthma ACT (score of 20 or higher) 1982 HIV Screening (Preventive Services) 1994 Adult Preventive Visit 1996 HepB Vaccine (1) 1997 Pneumococcal Vaccine (1 of 2 - PCV) 1997 Mammogram 09/29/2014 09/29/2013 Cholesterol 11/08/2023 COVID-19 Vaccine (4 - 2024- season) 2025 04/10/2021, 07/14/2020, 06/23/2020 Influenza Vaccine (#1) 2025 , 04/03/2023, 04/02/2022, Additional history exists DTaP/Tdap/Td Vaccine (2 - Tdap) 04/02/2025 04/02/2015 Zoster/Shingles Vaccine (1 of 2) 2028 HepA Vaccine Aged Out No longer eligi ble based on patient's age to complete this topic Hib Vaccine Aged Out No longer eligi ble based on patient's age to complete this topic IPV (Polio) Vaccine Aged Out No longe r eligible based on patient's age to complete this topic MCV4 Vaccine Aged Out No longer eligi ble based on patient's age to complete this topic Meningococcal B Vaccine Aged Out No l onger eligible based on patient's age to complete this topic Medical Devices Implanted Type Area Solutions Sales Executive Device Identifier Shelf Expiration Date Model / Serial / Lot Tightrope Acl Ti Rt - [id number] Implanted:Qty: 1 on 11/14/2021 by Rohit Saavedra MD at [facility] Right: [employer] 03/28/2026 [id number] / 0 / [id number] Sheath Orth Acl Intrafix 30mm - [id number] Implanted:Qty: 1 on 11/14/2021 by Rohit Saavedra MD at [facility] [employer] Right: K[employer] - [employer]ite[employer] 05/28/2024 [id number] / 0 / [id number] Scr Tpr Peek 7-9mm Intrfx - [id number] Implanted:Qty: 1 on 11/14/2021 by Rohit Saavedra MD at [facility] [employer] Right: [employer] - [employer] 10/27/2023 [id number] / 0 / [id number] [place] [place] [id number] [facility] [place] [address] [id number] [facility] [id number] [place] [address] [id number] [place] [address] Advance Directives * Full Code (Latest Code Status on File) Date Activated Date Inactivated Comments 11/14/2021 11:28 AM 11/14/2021 3:22 PM Care Teams Animal Control Licensing Worker Relationship Specialty Start Date End Date Pcp, [place] [address] PCP - General 03/29/18
== END 2025-03-09 17:36 | disposition home or self-care (01) ==
PROVIDERS: Emergency Provider Emergency Medicine
DX: F41.0 Panic disorder [episodic paroxysmal anxiety] (principal)
CPT/HCPCS: 96372; 99283; 99284; J3360